=== PATIENT | male | born 1975 | race Caucasian/White ===

== ENCOUNTER 2018-05-26 16:47 | Emergency (ER) | payer OTHER ==
[~2018-05-26 16:47] MED LIST: ASPI325EC PO; CEPH500 PO; NAPR220 PO; OXYACE7.5T PO
== END 2018-05-26 17:34 | disposition left against medical advice (07) ==
LOC: ER 16:47
DX: Z53.21 Procedure and treatment not carried out due to patient leaving prior to being seen by health care provider (principal)